=== PATIENT | female | born 1975 | race African-American/Black ===

== ENCOUNTER 2019-10-10 10:24 | Day surgery (SDC) | payer OTHER ==
[2019-10-10 11:28] VITALS: BMI 52.9
[2019-10-10 13:28] VITALS: TEMP 98
[2019-10-10 13:33] VITALS: BP 145/67; PULSE 64
== END 2019-10-10 13:30 | disposition home or self-care (01) ==
LOC: JASU-ENDO 10:24
PROVIDERS: ATTEND Internal Medicine Gastroenterology
PROC: 0DJD8ZZ Inspection of Lower Intestinal Tract, Via Natural or Artificial Opening Endoscopic (ICD-10-PCS; principal; 2019-10-10 11:15)
DX: Z12.11 Encounter for screening for malignant neoplasm of colon (principal); I10 Essential (primary) hypertension; E66.9 Obesity, unspecified; Z68.43 Body mass index [BMI] 50.0-59.9, adult